=== PATIENT | female | born 1935 | race African-American/Black ===

== ENCOUNTER 2023-05-12 15:23 | Emergency (ER) | payer MEDICAID, MEDICARE ==
[~2023-05-12] VITALS: Ht 157.5 cm; Wt 59.0 kg
[2023-05-12 15:28] VITALS: BP 155/75; PULSE 93; RESP 16; TEMP 98.2; O2SAT 99
[2023-05-12] MEDS ORDERED: CLINDAMYCIN HCL 150MG CAPSULE PO NR (17:00)
[2023-05-12] MEDS ORDERED: CLIN-194 MT (19:41)
[2023-05-12] MEDS ORDERED: ACETAMINOPHEN 325MG TABLET PO ONE (19:45)
[2023-05-12] MEDS ORDERED: TOPUD PO (20:06)
== END 2023-05-12 22:33 | disposition home or self-care (01) ==
LOC: ER 15:23
DX: R22.0 Localized swelling, mass and lump, head (principal); E11.9 Type 2 diabetes mellitus without complications; I10 Essential (primary) hypertension
CPT/HCPCS: 70486; 99284